=== PATIENT | female | born 1950 | race Caucasian/White ===

== ENCOUNTER 2017-03-30 22:09 | Inpatient (IN) | payer OTHER ==
[~2017-03-30] VITALS: Ht 157.5 cm; Wt 73.0 kg
[2017-03-31] MEDS ORDERED: morphine 4 MG/ML VIAL IV STA (01:43)
[2017-03-31] MEDS ORDERED: ONDANSETRON 4 MG INJ IV STA (01:43)
[2017-03-31] MEDS ORDERED: hydrALAzine 20 MG INJ IV ONE (02:00)
--- NOTE | 2017-03-31 02:08 | RADRPT ---
PROCEDURE: XR Chest. CLINICAL INDICATION: Abdominal pain TECHNIQUE: AP Portable chest. COMPARISON: No pertinent prior examinations were submitted for comparison. FINDINGS: The cardiomediastinal silhouette is normal. The lungs are clear. The osseous structures are unrema rkable. No intra-abdominal free air is seen, assuming this is an upright view. IMPRESSION: No acute findings. RPTAT: HIKT .Nathan Cruz MD, MD Date Time Electronically viewed and signed by .Nathan Cruz MD, on 03/31/2017 02:08 .T/
[2017-03-31 03:04] LABS: BASOPHILS % 0.3 % (0.0-2.0); EOSINOPHILS % 0.3 % (0.0-7.0); HEMATOCRIT 41.5 % (37.0-47.0); HEMOGLOBIN 13.9 g/dl (12.0-16.0); LYMPHOCYTES # 1.9 10^3/ul (0.8-2.9); MEAN CORPUSCULAR HEMOGLOBIN 30.2 pg (29.0-33.0); MEAN CORPUSCULAR HGB CONC 33.5 g/dl (32.0-37.0); MEAN CORPUSCULAR VOLUME 90.2 fl (82.0-101.0); MEAN PLATELET VOLUME 9.8 fl (7.4-10.4); MONOCYTE # 0.6 10^3/ul (0.3-0.9); MONOCYTES % 5.9 % (0.0-11.0); NEUTROPHILS % 75.1 % (39.0-77.0); PLATELET COUNT 249 10^3/UL (140-415); RED CELL DISTRIBUTION WIDTH 12.4 % (11.5-14.5); WHITE BLOOD COUNT 10.5 10^3/ul (4.8-10.8)
[2017-03-31 03:09] LABS: ADD UMIC NO; UR ASCORBIC ACID NEGATIVE (NEGATIVE); UR BILIRUBIN (Dip) NEGATIVE (NEGATIVE); UR BLOOD (Dip) NEGATIVE (NEGATIVE); UR CLARITY CLEAR (CLEAR); UR COLOR YELLOW (YELLOW); UR GLUCOSE (Dip) 1+ mg/dL (NEGATIVE); UR KETONES (Dip) NEGATIVE (NEGATIVE); UR LEUKOCYTE ESTERASE (Dip) NEGATIVE Leu/ul (NEGATIVE); UR NITRITE (Dip) NEGATIVE (NEGATIVE); UR SPECIFIC GRAVITY (Dip) 1.014 (1.003-1.030); UR TOTAL PROTEIN (Dip) NEGATIVE (NEGATIVE); UR UROBILINOGEN (Dip) NEGATIVE (NEGATIVE)
--- NOTE | 2017-03-31 03:10 | RADRPT ---
PROCEDURE: CT of the abdomen and pelvis without contrast CLINICAL INDICATION: Abdominal pain. TECHNIQUE: Spiral CT images through the abdomen and pelvis without the use of oral and without the use of intravenous contrast. The administered radiation dose is CTDI 14.43 and DLP 899.95. One or more of the following dose reduction techniques were used: automated exposure control, adjustment of the mA and/or kV according to patient size, or use of iterative reconstruction technique. COMPARISON: None FINDINGS: The study is limited by lack of intravenous contrast. Lung bases: Slight dependent atalectasis of the lung bases is seen.. Hepatobiliary: Mild diffuse hepatic steatosis.. The gallbladder is distended with small layering stones, wall thickening, and a small amount of air within. A small amount of air is present in the c ommon bile duct and the common hepatic ducts. Question prior sphincterotomy.. No biliary or pancreat ic ductal dilatation is seen.. Spleen: The spleen is unremarkable in appearance Adrenal glands: Unremarkable in appearance. No focal nodule.. Genitourinary: No hydronephrosis or renal calculi are seen.. Tiny calcification is seen in the anter ior urinary bladder wall.. Subtle 8 mm low attenuation lesion in the right kidney may represent a po yue defined cyst. Pancreas: Unremarkable. No focal mass or inflammatory process. Gastrointestinal Tract: There is no evidence for bowel obstruction, free air, or abscess. The appen patricia is unremarkable in appearance. Lymph nodes: No visible pathologic lymphadenopathy.. Peritoneal cavity: Unremarkable mesentery and peritoneum.. No mass, edema, or ascites. Reproductive Organs: Unremarkable uterus and adnexal structures.. Vascular structures: Mild aortic and coronary artery calcification. Mild cardiomegaly.. Musculoskeletal: There is mild degenerative change of the spine. IMPRESSION: Probable acute cholecystitis. Correlation with HIDA scan could be considered. Air in the gallbladde r and extrahepatic biliary ducts suggests prior sphincterotomy. Hepatic steatosis. RPTAT: HLBE Physician Cris Date Time Electronically viewed and signed by Physician Cris on 03/31/2017 03:10 LE/
[2017-03-31] MEDS ORDERED: SITA1TAB5 PO (03:21)
[2017-03-31] MEDS ORDERED: LISI40TA9 PO (03:21)
[2017-03-31] MEDS ORDERED: OMEP20CA16 PO (03:21)
[2017-03-31 03:24] LABS: ALANINE AMINOTRANSFERASE 79 IU/L (13-69); ALBUMIN 4.5 g/dl (3.3-4.9); ALBUMIN/GLOBULIN RATIO 1.32; ALKALINE PHOSPHATASE 71 IU/L (42-121); ANION GAP 16 (8-16); ASPARTATE AMINO TRANSFERASE 82 IU/L (15-46); BILIRUBIN,INDIRECT 0.5 mg/dl (0-1.1); BILIRUBIN,TOTAL 0.5 mg/dl (0.2-1.3); BLOOD UREA NITROGEN 18 mg/dl (7-20); CALCIUM 9.5 mg/dl (8.4-10.2); CARBON DIOXIDE 26 mmol/L (21-31); CHLORIDE 106 mmol/L (97-110); CREATININE 0.84 mg/dl (0.44-1.00); GLUCOSE 177 mg/dl (70-220); POTASSIUM 3.9 mmol/L (3.5-5.1); SODIUM 144 mmol/L (135-144); TOTAL PROTEIN 7.9 g/dl (6.1-8.1)
[2017-03-31 03:41] VITALS: TEMP 98.2
[2017-03-31 03:41] LABS: TROPONIN-I < 0.012 ng/ml (0.00-0.12)
[2017-03-31] MEDS ORDERED: GLUCOSE GEL 15 GRAM TUBE BUCCAL PRN (06:50)
[2017-03-31] MEDS ORDERED: DEXTROSE 50% 50 ML SYRINGE IV PRN ×2 (06:50)
[2017-03-31] MEDS ORDERED: GLUCAGON 1 MG INJ IM PRN (06:50)
[2017-03-31] MEDS ORDERED: GLUCOSE GEL 15 GRAM TUBE PO PRN ×2 (06:50)
[2017-03-31] MEDS ORDERED: NACL 0.9% 3 ML SYG IV SCH (07:00)
[2017-03-31] MEDS ORDERED: ACETAMINOPHEN 325 MG TAB PO PRN (07:00)
--- NOTE | 2017-03-31 07:34 | HP ---
Date/Time of Note Date/Time of Note DATE: 03/31/17 TIME: 07:14 Assessment/Plan VTE Prophylaxis VTE Prophylaxis Intervention: SCD's Assessment/Plan Chief Complaint/Hosp Course This is a 58-year-old female being admitted to the [facility] floor for: #1 acute pancreatitis: Patient's lipase is 7500. Patient denies any alcohol use. Will keep the patient n.p.o., provide aggressive IV fluid hydration with normal saline. IV narcotic pain control. Will check lipid panel blood alcohol level. #2 probable acute cholecystitis: The current time will start the patient on Zosyn IV every 6. As there is air in the gallbladder seen on the CAT scan will order an MRCP and a GI consult. Consider further consult with surgery as indicated. #3 diabetes mellitus: Check hemoglobin A1c. Will put patient on insulin sliding scale hold home medications. #4 hypertension: Continue to monitor blood pressure. Home blood pressure medication as indicated Further treatment strategy will be implemented as per the clinical course Problems: HPI/ROS Admit Date/Time Admit Date/Time Hx of Present Illness Chief complaint: Back pain radiating to the abdomen This is a 66-year-old female who comes in today with back pain radiating radiating to the abdomen. Patient states that the pain started suddenly was sharp and 10 out of 10. The pain started in her back and radiated around the right side to the epigastric region. She denies ever having this pain before. She does report nausea and vomiting. She reports multiple episodes of vomiting nonbloody nonbilious. She denies any fevers denies any shortness of breath. Denies any blood in her stool or blood in her vomitus. Allergies: Peanuts, strawberries Medications: See DELILAH AYALA Const: As per HPI Eyes : No pain discharge or redness or change in visual acuity ENT: No pain, sore throat, congestion, congestion, dysphagia or discharge Respiratory: No shortness of breath, cough, sputum, wheezing, or pleuritic pain Cardiovascular: No chest pain, palpitation, PND, or edema GI : As per HPI Genitourinary: No dysuria, hematuria, flank pain , discharge or CVA tenderness Musculoskeletal: No joint pain, back pain, neck pain, restricted range of motion in neck or joints Skin: No rash, bruising or hives Neuro: No headache, dizziness, syncope, seizure, focal weakness Endocrine: No polyuria, polydipsia, temperature intolerance Psych: No hallucination, depression, anxiety or suicidal ideation PMH/Family/Social Past Medical History Hypertension, diabetes Past Surgical History Left knee surgery, abdominal cyst removal Family History Significant Family History: no pertinent family hx Social History Alcohol Use: none Smoking Status: Never smoker Drug Use: none Exam/Review of Systems Vital Signs Vitals Vital Signs Date Time Temp Pulse Resp B/P Pulse Ox O2 Delivery O2 Flow Rate FiO2 03/31/17 06:39 72 20 132/85 99 Room Air 03/31/17 03:41 98.2 Exam Exam General: Patient is well-developed well-nourished The patient is alert oriented -3 lying comfortably in bed. HEENT: Atraumatic, normocephalic. The pupils are equal, round and reactive. Extraocular motor are intact Neck: Supple with full range of motion. No rigidity or meningismus Chest: Nontender Lungs: Clear to auscultation bilaterally no crackles rales or wheezing Heart: Normal S1-S2, Regular rhythm and rate. No murmur, S3, or S4 Abdomen: Tenderness to palpation the epigastric region, normal bowel sounds, distended Extremities: Normal to inspection, no edema no cyanosis Neurologic: Normal mental status, speech normal, cranial nerves II through XII are intact, motor and sensory are intact, no focal weakness Additional Comments PROCEDURE: CT of the abdomen and pelvis without contrast CLINICAL INDICATION: Abdominal pain. TECHNIQUE: Spiral CT images through the abdomen and pelvis without the use of oral and without the use of intravenous contrast. The administered radiation dose is CTDI 14.43 and DLP 899.95. One or more of the following dose reduction techniques were used: automated exposure control, adjustment of the mA and/or kV according to patient size, or use of iterative reconstruction technique. COMPARISON: None FINDINGS: The study is limited by lack of intravenous contrast. Lung bases: Slight dependent atalectasis of the lung bases is seen.. Hepatobiliary: Mild diffuse hepatic steatosis.. The gallbladder is distended with small layering stones, wall thickening, and a small amount of air within. A small amount of air is present in the common bile duct and the common hepatic ducts. Question prior sphincterotomy.. No biliary or pancreatic ductal dilatation is seen.. Spleen: The spleen is unremarkable in appearance Adrenal glands: Unremarkable in appearance. No focal nodule.. Genitourinary: No hydronephrosis or renal calculi are seen.. Tiny calcification is seen in the anterior urinary bladder wall.. Subtle 8 mm low attenuation lesion in the right kidney may represent a poorly defined cyst. Pancreas: Unremarkable. No focal mass or inflammatory process. Gastrointestinal Tract: There is no evidence for bowel obstruction, free air, or abscess. The appendix is unremarkable in appearance. Lymph nodes: No visible pathologic lymphadenopathy.. Peritoneal cavity: Unremarkable mesentery and peritoneum.. No mass, edema, or ascites. Reproductive Organs: Unremarkable uterus and adnexal structures.. Vascular structures: Mild aortic and coronary artery calcification. Mild cardiomegaly.. Musculoskeletal: There is mild degenerative change of the spine. IMPRESSION: Probable acute cholecystitis. Correlation with HIDA scan could be considered. Air in the gallbladder and extrahepatic biliary ducts suggests prior sphincterotomy. Hepatic steatosis. RPTAT: HLBE Physician Cris Date Time Electronically viewed and signed by Hortencia Tierney Physician on 03/31/2017 03 :10 LE/ CC: AFSHAN RUIZ PROCEDURE: XR Chest. CLINICAL INDICATION: Abdominal pain TECHNIQUE: AP Portable chest. COMPARISON: No pertinent prior examinations were submitted for comparison. FINDINGS: The cardiomediastinal silhouette is normal. The lungs are clear. The osseous structures are unremarkable. No intra-abdominal free air is seen, assuming this is an upright view. IMPRESSION: No acute findings. RPTAT: HIKT .Nathan Cruz MD, MD Date Time Electronically viewed and signed by .Nathan Cruz MD, MD on 03/31/2017 02:08 .T/ CC: AFSHAN RUIZ Labs Result Diagram: 03/31/1721403/31/17214 Medications Medications Current Medications Sodium Chloride (NS) 1,000 ml @ 200 mls/hr Q5H IV ; Start 03/31/17 at 06:42 Ondansetron HCl (Zofran Inj) 4 mg Q6H PRN IV NAUSEA AND/OR VOMITING; Start 03/31 at 07:00 Acetaminophen (Tylenol Tab) 650 mg Q6H PRN PO PAIN LEVEL 1-3 OR FEVER; Start at 07:00 Hydromorphone HCl (Dilaudid) 0.5 mg Q4H PRN IV SEVERE PAIN LEVEL 7-10; Start at 07:00 Pantoprazole (Protonix Iv) 40 mg DAILY@06 IV ; Start 04/01/17 at 06:00 Diagnostic Test (Pha) (Accu-Chek) 1 ea 02 XX ; Start 04/01/17 at 02:00 Insulin Aspart (Novolog Insulin Pen) NOVOLOG *MILD* ALGORI... Q4 SC ; Start 03/31 at 09:00 Miscellaneous Information 1 ea NOTE XX ; Start 03/31/17 at 06:50 Glucose (Glutose) 15 gm Q15M PRN PO DECREASED GLUCOSE; Start 03/31/17 at 06:50 Glucose (Glutose) 22.5 gm Q15M PRN PO DECREASED GLUCOSE; Start 03/31/17 at 06:50 Dextrose (D50w Syringe) 25 ml Q15M PRN IV DECREASED GLUCOSE; Start 03/31/17 at 06:50 Dextrose (D50w Syringe) 50 ml Q15M PRN IV DECREASED GLUCOSE; Start 03/31/17 at 06:50 Glucagon (Glucagen) 1 mg Q15M PRN IM DECREASED GLUCOSE; Start 03/31/17 at 06:50 Glucose (Glutose) 15 gm Q15M PRN BUCCAL DECREASED GLUCOSE; Start 03/31/17 at 06: 50 GERSON GARCIA Mar 31, 2017 07:25
[2017-03-31] MEDS: SOD CHLORIDE 0.9% 1,000 ML IV SCH ×5 (08:09→21:31)
[2017-03-31] MEDS: PIPER-TAZO 3.375 GM IV (PMX) 100 ML IVPB SCH ×3 (08:46→17:59)
[2017-03-31 09:09] LABS: CHOL/HDL RATIO 4.4 RATIO
[2017-03-31 09:20] VITALS: Ht 157.5 cm; Wt 73.0 kg
[2017-03-31] MEDS: INSULIN ASPART [NOVOLOG] 3 ML PEN SC SCH ×4 (09:33→21:00)
--- NOTE | 2017-03-31 09:37 | RADRPT ---
PROCEDURE: US Abdomen (right upper quadrant). CLINICAL INDICATION: Abdominal pain TECHNIQUE: Multiple real-time longitudinal and transverse images of the right upper quadrant of th e abdomen were acquired utilizing a curved array transducer. Images were reviewed on a high-resoluti on PACS workstation. COMPARISON: Correlation with CT from the same day. FINDINGS: The liver is normal in size and demonstrates diffusely increased echogenicity without focal mass or intrahepatic biliary dilatation. Multiple stones are seen dependently within the gallbladder. Irreg ular shadowing is seen non dependently within the gallbladder which may represent focal area of gas as seen on prior CT. The gallbladder wall is thickened measuring 5.1 mm. No intrahepatic biliary di latation is seen. The common bile duct measures 6 mm in maximal dimension. The visualized portions of the pancreas are unremarkable with obscuration of the tail of the pancreas. No free fluid is id entified. The right kidney measures 11.3 cm in length. There is normal echogenicity within the right kidney. There is no perinephric fluid collection. No hydronephrosis, mass, or calculus is seen. IMPRESSION: 1. Cholelithiasis with gallbladder wall edema and suggestion of gas along the anterior aspect of th e gallbladder. The findings may represent emphysematous cholecystitis in the correct clinical settin g. 2. Borderline prominent common bile duct. Correlate with bilirubin levels. If there is concern for choledocholithiasis, consider MRCP. 3. Increased hepatic echogenicity, suggesting steatosis. RPTAT: EE .Hank Velazquez MD, Date Time Electronically viewed and signed by .Hank Velazquez MD, on 03/31/2017 09:37 .A/
[2017-03-31 09:40] LABS: THYROID STIMULATING HORMONE 0.29 MIU/L (0.465-4.680)
--- NOTE | 2017-03-31 10:23 | RADRPT ---
PROCEDURE: MRCP without contrast. CLINICAL INDICATION: Right upper quadrant abdominal pain. TECHNIQUE: Routine MRCP was obtained without the administration of intravenous contrast. COMPARISON: Ultrasound, 03/31/17. FINDINGS: There are multiple small stones with diffuse gallbladder wall thickening. The biliary system is norm al in caliber. There is no filling defect or choledocholithiasis. The pancreatic duct is within normal limits. There is trace inflammation identified in the right an terior pararenal space, which may reflect pancreatitis. There is no peripancreatic fluid collection. IMPRESSION: Cholelithiasis with diffuse gallbladder wall thickening; recommend clinical correlation for cholecys titis. No biliary dilatation, choledocholithiasis, or biliary obstruction. RPTAT: EE .George Montes MD, MD Date Time Electronically viewed and signed by .George Montes MD, on 03/31/2017 10:28 .C/
[2017-03-31] MEDS: HYDROmorphONE 1 MG/ML SYG IV PRN ×2 (11:24→21:25)
[2017-03-31 11:26] VITALS: BP 126/75; PULSE 76; RESP 16
[2017-03-31] MEDS: ONDANSETRON 4 MG INJ IV PRN ×2 (12:52→21:29)
[2017-03-31 14:14] VITALS: BP 131/74; RESP 16
--- NOTE | 2017-03-31 16:14 | QN ---
Documentation Comment S: Patient seen and examined with daughter at bedside this am. She was c/o epigastric abdominal pain with nausea and vomiting but feeling hungry. Would like to eat but as she was being transported to another room she had an episode of emesis. O: VSS general- fatigued, awake and alert CVS- regular rate and rhythm, no murmurs Lungs- CTA B/L. no wheezes, rales, rhonchi Abd- soft, tenderness in epigastric area, negative rbittani sign, no rebound or guarding Ext- pulses intact, no edema, cyanosis, or clubbing A/P 1. Acute pancreatitis - Will continue IV NSS, pain control and NPO status - Will plan to advance diet as tolerated - Etiology may be from DM medication- sitagliptin and will need to change medication prior to discharge - Lipase trending downward - MRCP negative for choledocholithiasis - TG 147 2. Acute cholecystitis? - Spoke with patient about possibility of needing surgery but at this time would like to hold off on surgery until pancreas pain resolves - Patient denies any diarrhea and remains afebrile with nl WBC 3. DM - A1c 7.0 - On metformin/sitagliptin but will need to change medication prior to d/c since pancreatitis may be medication induced. - hold metformin while inpatient and ISS 4. TSH - 0.29 but in acute setting will need to have levels follow up after acute issue resolves ISAIAH ALLEN MD Mar 31, 2017 16:14
[2017-03-31 20:00] VITALS: BP 160/88; RESP 20
[2017-04-01] MEDS: INSULIN ASPART [NOVOLOG] 3 ML PEN SC SCH ×4 (00:13→12:32)
[2017-04-01] MEDS: PIPER-TAZO 3.375 GM IV (PMX) 100 ML IVPB SCH ×4 (00:13→17:50)
[2017-04-01] MEDS ORDERED: ACCU-CHEK XX SCH (02:00)
[2017-04-01 02:08] VITALS: BP 140/79; RESP 20
[2017-04-01] MEDS: SOD CHLORIDE 0.9% 1,000 ML IV SCH ×5 (03:34→20:30)
[2017-04-01 05:35] LABS: BASOPHILS % 0.5 % (0.0-2.0); EOSINOPHILS # 0.2 10^3/ul (0.0-0.5); EOSINOPHILS % 2.1 % (0.0-7.0); HEMATOCRIT 34.4 % (37.0-47.0); HEMOGLOBIN 11.3 g/dl (12.0-16.0); LYMPHOCYTES # 1.8 10^3/ul (0.8-2.9); LYMPHOCYTES % 22.9 % (15.0-51.0); MEAN CORPUSCULAR HEMOGLOBIN 29.9 pg (29.0-33.0); MEAN CORPUSCULAR HGB CONC 32.8 g/dl (32.0-37.0); MEAN PLATELET VOLUME 9.9 fl (7.4-10.4); MONOCYTE # 0.7 10^3/ul (0.3-0.9); MONOCYTES % 9.4 % (0.0-11.0); NEUTROPHILS % 64.8 % (39.0-77.0); PLATELET COUNT 208 10^3/UL (140-415); RED BLOOD COUNT 3.78 10^6/ul (4.20-5.40); RED CELL DISTRIBUTION WIDTH 12.8 % (11.5-14.5); WHITE BLOOD COUNT 7.8 10^3/ul (4.8-10.8)
[2017-04-01 05:54] LABS: ALBUMIN/GLOBULIN RATIO 1.15; BILIRUBIN,INDIRECT 0.6 mg/dl (0-1.1); BILIRUBIN,TOTAL 0.6 mg/dl (0.2-1.3); CALCIUM 8.2 mg/dl (8.4-10.2); CREATININE 0.81 mg/dl (0.44-1.00); POTASSIUM 3.7 mmol/L (3.5-5.1); TOTAL PROTEIN 5.6 g/dl (6.1-8.1)
[2017-04-01] MEDS ORDERED: PANTOPRAZOLE 40 MG INJ IV SCH (06:00)
[2017-04-01 07:37] VITALS: BP 135/78; RESP 17
--- NOTE | 2017-04-01 12:16 | PN ---
Date/Time of Note Date/Time of Note DATE: 04/01/17 TIME: 12:10 Assessment/Plan VTE Prophylaxis VTE Prophylaxis Intervention: LMWH Lines/Catheters IV [facility]): Peripheral IV Urinary Cath still in place: No Assessment/Plan Assessment/Plan 1. Acute pancreatitis - Most likely secondary to sitagliptin as patient was recently started on this per family - will start on clear liquid diet and advance as tolerated - Once tolerating PO will d/c IV NSS - Lipase trending downward - MRCP negative for choledocholithiasis - TG 147 2. Acute cholecystitis? - Doubt acute infection since Jose sign negative - LFT within normal limits - Patient denies any diarrhea and remains afebrile with nl WBC - On Zosyn and will d/c tmrw if WBC remain stable. Keeping on board for now due to presence of gas on CT scan of abdomen 3. DM - A1c 7.0 - On metformin/sitagliptin as outpt but will need to change medication prior to d/c since pancreatitis may be medication induced. - hold oral hyperglycemic agents 4. TSH - 0.29 but in acute setting will need to have levels follow up after acute issue resolves Subjective 24 Hr Interval Summary Free Text/Dictation Patient seen and examined with daughters at bedside. Patient doing well and hungry. She states her epigastric pain has resolved and would like to try eating. Denies any fevers, chills, nausea, vomiting, chest pain, shortness of breath, constipations, or diarrhea. Exam/Review of Systems Vital Signs Vitals Vital Signs Date Time Temp Pulse Resp B/P Pulse Ox O2 Delivery O2 Flow Rate FiO2 04/01/17 07:37 98.3 67 17 135/78 97 03/31/17 11:26 Room Air Intake and Output 03/31/17 03/31/17 04/01/17 15:00 23:00 07:00 Intake Total 100 ml 1300 ml 1200 ml Output Total 400 ml Balance 100 ml 900 ml 1200 ml Exam General: NAD, well-developed, laying comfortably in bed. HEENT: NC/AT. PERRL. EOM intact Neck: Supple with full range of motion. Lungs: Clear to auscultation bilaterally no crackles rales or wheezing Heart: Normal S1-S2, Regular rhythm and rate. No murmur, S3, or S4 Abdomen: saft, nontender, normal bowel sounds, distended Extremities: Normal to inspection, no edema no cyanosis Neurologic: Normal mental status, speech normal, cranial nerves II through XII are intact, motor and sensory are intact, no focal weakness Results Result Diagram: 04/01/1751104/01/17511 Results 24 hrs Laboratory Tests Test 03/31/17 13:57 03/31/17 14:10 03/31/17 18:02 03/31/17 21:15 Lipase 833 H Bedside Glucose 204 140 129 Test 04/01/17 00:12 04/01/17 05:12 04/01/17 05:27 04/01/17 09:03 Bedside Glucose 114 120 132 White Blood Count 7.8 # Red Blood Count 3.78 L Hemoglobin 11.3 L Hematocrit 34.4 L Mean Corpuscular Volume 91.0 Mean Corpuscular Hemoglobin 29.9 Mean Corpuscular Hemoglobin Concent 32.8 Red Cell Distribution Width 12.8 Platelet Count 208 Mean Platelet Volume 9.9 Neutrophils % 64.8 Lymphocytes % 22.9 Monocytes % 9.4 Eosinophils % 2.1 Basophils % 0.5 Nucleated Red Blood Cells % 0.0 Neutrophils # (Manual) 5.1 Lymphocytes # 1.8 Monocytes # 0.7 Eosinophils # 0.2 Basophils # 0.0 Nucleated Red Blood Cells # 0.0 Sodium Level 140 Potassium Level 3.7 Chloride Level 110 Carbon Dioxide Level 26 Anion Gap 8 # Blood Urea Nitrogen 14 Creatinine 0.81 Glucose Level 130 # Calcium Level 8.2 L Magnesium Level 1.8 Total Bilirubin 0.6 Direct Bilirubin 0.00 Indirect Bilirubin 0.6 Aspartate Amino Transf (AST/SGOT) 27 Alanine Aminotransferase (ALT/SGPT) 47 Alkaline Phosphatase 50 Total Protein 5.6 #L Albumin 3.0 #L Globulin 2.60 Albumin/Globulin Ratio 1.15 Medications Medications Current Medications Ondansetron HCl (Zofran Inj) 4 mg Q6H PRN IV NAUSEA AND/OR VOMITING Last administered on 03/31/17t 21:29; Admin Dose 4 MG; Start 03/31/17 at 07:00 Acetaminophen (Tylenol Tab) 650 mg Q6H PRN PO PAIN LEVEL 1-3 OR FEVER; Start at 07:00 Hydromorphone HCl (Dilaudid) 0.5 mg Q4H PRN IV SEVERE PAIN LEVEL 7-10 Last administered on 03/31/17 21:25; Admin Dose 0.5 MG; Start 03/31/17 at 07:00 Pantoprazole (Protonix Iv) 40 mg DAILY@06 IV Last administered on 04/01/17 05: 23; Admin Dose 40 MG; Start 04/01/17 at 06:00 Diagnostic Test (Pha) (Accu-Chek) 1 ea 02 XX ; Start 04/01/17 at 02:00 Insulin Aspart (Novolog Insulin Pen) NOVOLOG *MILD* ALGORI... Q4 SC Last administered on 03/31/17 14:22; Admin Dose 2 UNIT; Start 03/31/17 at 09:00 Miscellaneous Information 1 ea NOTE XX ; Start 03/31/17 at 06:50 Glucose (Glutose) 15 gm Q15M PRN PO DECREASED GLUCOSE; Start 03/31/17 at 06:50 Glucose (Glutose) 22.5 gm Q15M PRN PO DECREASED GLUCOSE; Start 03/31/17 at 06:50 Dextrose (D50w Syringe) 25 ml Q15M PRN IV DECREASED GLUCOSE; Start 03/31/17 at 06:50 Dextrose (D50w Syringe) 50 ml Q15M PRN IV DECREASED GLUCOSE; Start 03/31/17 at 06:50 Glucagon (Glucagen) 1 mg Q15M PRN IM DECREASED GLUCOSE; Start 03/31/17 at 06:50 Glucose 15 gm 15 gm Q15M PRN BUCCAL DECREASED GLUCOSE; Start 03/31/17 at 06:50 Piperacillin Sod/ Tazobactam Sod 100 ml @ 200 mls/hr Q6 IVPB Last administered on 04/01/17 05:23; Admin Dose 200 MLS/HR; Start 03/31/17 at 07:30 Sodium Chloride (NS) 1,000 ml @ 100 mls/hr Q10H IV Last administered on 10:39; Admin Dose 100 MLS/HR; Start 04/01/17 at 10:30 ISAIAH ALLEN MD Apr 01, 2017 12:16
[2017-04-01 14:26] VITALS: BP 134/74; RESP 19
[2017-04-01] MEDS: Insulin NOVOLOG SS MILD Algorithm (SS with meals and bedtime) SC SCH ×2 (17:36→21:00)
[2017-04-01] MEDS ORDERED: INSULIN ASPART [NOVOLOG] 3 ML PEN SC SCH (17:45)
[2017-04-01 20:17] VITALS: BP 156/87; RESP 18
[2017-04-02] MEDS: PIPER-TAZO 3.375 GM IV (PMX) 100 ML IVPB SCH ×2 (00:48→06:36)
[2017-04-02 01:58] VITALS: BP 149/73; RESP 18
[2017-04-02] MEDS ORDERED: ACCUCHECK AT 2AM (Patients on SS coverage) XX SCH (02:00)
[2017-04-02] MEDS: SOD CHLORIDE 0.9% 1,000 ML IV SCH (06:30)
[2017-04-02 07:37] VITALS: BP 163/79; RESP 18
[2017-04-02] MEDS: Insulin NOVOLOG SS MILD Algorithm (SS with meals and bedtime) SC SCH ×3 (08:01→17:45)
[2017-04-02] MEDS ORDERED: LISINOPRIL 20 MG TAB PO SCH (09:00)
[2017-04-02] MEDS ORDERED: FAMOTIDINE 20 MG INJ IV SCH (09:00)
--- NOTE | 2017-04-02 09:00 | PN ---
Date/Time of Note Date/Time of Note DATE: 04/02/17 TIME: 08:58 Assessment/Plan VTE Prophylaxis VTE Prophylaxis Intervention: LMWH Lines/Catheters [facility] Peripheral IV Urinary Cath still in place: No Assessment/Plan Assessment/Plan 1. Acute pancreatitis - Most likely secondary to sitagliptin as patient was recently started on this per family - advancing diet as tolerated. if no issues after lunch, will d/c - D/C NSS - MRCP negative for choledocholithiasis - TG 147 2. Acute cholecystitis? - Doubt acute infection since Jose sign negative - LFT within normal limits - Patient denies any diarrhea and remains afebrile with nl WBC -D/C Zosyn 3. DM - A1c 7.0 - On metformin/sitagliptin as outpt. A1c is 7.0 and will d/c sitagliptin. Will start on glipizide 2.5mg and continue on Metformin 1000mg BID - hold oral hyperglycemic agents until discharge. 4. TSH - 0.29 but in acute setting will need to have levels follow up after acute issue resolves Subjective 24 Hr Interval Summary Free Text/Dictation Patient seen and examined. Doing well and states no longer experiencing any pain. She is tolerating soft diet and will advance her to regular diet. Denies any chest pain, shortness of breath, abdominal pain, constipation, diarrhea, fevers, or chills. Exam/Review of Systems Vital Signs Vitals Vital Signs Date Time Temp Pulse Resp B/P Pulse Ox O2 Delivery O2 Flow Rate FiO2 04/02/17 07:37 97.9 67 18 163/79 97 03/31/17 11:26 Room Air Intake and Output 04/01/17 04/01/17 04/02/17 15:00 23:00 07:00 Intake Total 1420 ml 990 ml Balance 1420 ml 990 ml Exam General: NAD, well-developed, laying comfortably in bed. HEENT: NC/AT. PERRL. EOM intact Neck: Supple with full range of motion. Lungs: Clear to auscultation bilaterally no crackles rales or wheezing Heart: Normal S1-S2, Regular rhythm and rate. No murmur, S3, or S4 Abdomen: soft, nontender, normal bowel sounds, distended. no rebound or guarding Extremities: Normal to inspection, no edema no cyanosis Results Result Diagram: 04/01/17 0512 04/01/17 0512 Results 24 hrs Laboratory Tests Test 04/01/17 09:03 04/01/17 12:28 04/01/17 17:29 04/01/17 20:57 Bedside Glucose 132 131 130 177 Test 04/02/17 07:54 Bedside Glucose 145 Medications Medications Current Medications Ondansetron HCl (Zofran Inj) 4 mg Q6H PRN IV NAUSEA AND/OR VOMITING Last administered on 03/31/17 21:29; Admin Dose 4 MG; Start 03/31/17 at 07:00 Acetaminophen (Tylenol Tab) 650 mg Q6H PRN PO PAIN LEVEL 1-3 OR FEVER; Start at 07:00 Hydromorphone HCl (Dilaudid) 0.5 mg Q4H PRN IV SEVERE PAIN LEVEL 7-10 Last administered on 03/31/17 21:25; Admin Dose 0.5 MG; Start 03/31/17 at 07:00 Miscellaneous Information 1 ea NOTE XX ; Start 03/31/17 at 06:50 Glucose (Glutose) 15 gm Q15M PRN PO DECREASED GLUCOSE; Start 03/31/17 at 06:50 Glucose (Glutose) 22.5 gm Q15M PRN PO DECREASED GLUCOSE; Start 03/31/17 at 06:50 Dextrose (D50w Syringe) 25 ml Q15M PRN IV DECREASED GLUCOSE; Start 03/31/17 at 06:50 Dextrose (D50w Syringe) 50 ml Q15M PRN IV DECREASED GLUCOSE; Start 03/31/17 at 06:50 Glucagon (Glucagen) 1 mg Q15M PRN IM DECREASED GLUCOSE; Start 03/31/17 at 06:50 Glucose 15 gm 15 gm Q15M PRN BUCCAL DECREASED GLUCOSE; Start 03/31/17 at 06:50 Piperacillin Sod/ Tazobactam Sod 100 ml @ 200 mls/hr Q6 IVPB Last administered on 04/02/17 06:36; Admin Dose 200 MLS/HR; Start 03/31/17 at 07:30 Sodium Chloride (NS) 1,000 ml @ 100 mls/hr Q10H IV Last administered on 10:39; Admin Dose 100 MLS/HR; Start 9/7/17 at 10:30 Diagnostic Test (Pha) (Accu-Chek) 1 ea 02 XX ; Start 04/02/17 at 02:00 Famotidine (Pepcid Iv) 20 mg DAILY IV Last administered on 04/02/17t 08:17; Admin Dose 20 MG; Start 04/02/17 at 09:00 ISAIAH ALLEN MD Apr 02, 2017 09:00
--- NOTE | 2017-04-02 10:05 | PDOCDIS ---
Discharge Instructions DIAGNOSIS Discharge Diagnosis Acute pancreatitis, medication induced CONDITION Patient Condition: Good HOME CARE INSTRUCTIONS: Diet Instructions: Regular ACTIVITY: Activity Restrictions: No Restrictions FOLLOW UP/APPOINTMENTS Follow-up Plan Follow up with PCP for management of diabetic medications Janumet was discontinued because the Sitagliptin was most likely the cause of her pancreatitis Take Metformin 1000mg twice a day and Glipizide 2.5 mg daily for sugar control Keep well hydrated Return to ED if symptoms return ISAIAH ALLEN MD Apr 02, 2017 10:05
[2017-04-02 14:28] VITALS: BP 153/83; RESP 18
[2017-04-02] MEDS ORDERED: METF1000 PO (16:29)
[2017-04-02] MEDS ORDERED: GLIP5TAB13 PO (16:29)
[2017-04-03] MEDS ORDERED: PANTOPRAZOLE (EC) 40 MG TAB PO SCH (06:00)
--- NOTE | 2017-04-03 08:22 | DS ---
Date/Time of Note Date/Time of Note DATE: 04/03/17 TIME: 08:15 Discharge Summary Admission/Discharge Info Admit Date/Time Mar 31, 2017 at 05:29 Discharge Date/Time Apr 02, 2017 at 18:30 Discharge Diagnosis Acute pancreatitis, medication induced Patient Condition: Good Hx of Present Illness Chief complaint: Back pain radiating to the abdomen This is a 66-year-old female with PMH HTN and DM who comes in today with back pain radiating radiating to the abdomen. Patient states that the pain started suddenly was sharp and 10 out of 10. The pain started in her back and radiated around the right side to the epigastric region. She denies ever having this pain before. She does report nausea and vomiting. She reports multiple episodes of vomiting nonbloody nonbilious. She denies any fevers denies any shortness of breath. Denies any blood in her stool or blood in her vomitus. She was found to have acute pancreatitis with a lipase of 7500. Patient denies any alcohol use. She also had questionable acute cholecystitis with air in the gallbladder seen on the CAT scan Hospital Course The patient was admitted to med/surg floor and kept NPO, IV NSS was initiated and was started on pain control. She admitted to recently being started on Sitagliptin for glucose control and developed the abdominal pain shortly after. MRCP was performed which ruled out choledocholithiasis. Patient was informed about questionable acute davey and offered HIDA scan and surgery consultation. She decided to just be managed for the pancreatitis and if she developed RUQ pain then would like to pursue. Oral diabetic medications were held and she was placed on an insulin sliding scale. Abdominal pain was improving and her diet was advanced based on tolerance. Patients Jose sign was negative during hospitalization and she was able to tolerated regular diet with no issues. She was discharged on Metformin 1000mg BID and glipizide 2.5mg since her A1c was 7.0. She was discharged home with instructions to follow up with PCP. Patient was stable on discharge. Home Meds Active Scripts Glipizide* (Glipizide*) 5 Mg Tablet, 2.5 MG PO DAILY for 30 Days, #30 TAB Take 1/2 tablet by mouth daily Prov:ISAIAH ALLEN MD 04/02/17 Metformin Hcl* (Metformin Hcl*) 1,000 Mg Tablet, 1000 MG PO WITH BREAKFAST DINNE , #60 TAB Take one tablet by mouth twice daily Prov:ISAIAH ALLEN MD 04/02/17 Reported Medications Lisinopril* (Lisinopril*) 40 Mg Tablet, 40 MG PO DAILY, #30 TAB 03/31/17 Omeprazole* (Omeprazole*) 20 Mg Capsule.dr, 20 MG PO QAM, #30 CAP 03/31/17 Discontinued Reported Medications Sitagliptin Phos/Metformin HCl (Janumet 50-1,000 mg Tablet) 1 Each Tablet, 1 EACH PO, TAB 03/31/17 Follow-up Plan Follow up with PCP after discharge from hospital for monitoring of her diabetes. She was instructed to discontinue Janumet and take Metformin 1000mg BID and Glipizide 1.5mg daily. Primary Care Provider Not On Staff Doctor Time spent on discharge: > 30 minutes Pending Labs Laboratory Tests Test 04/02/17 11:57 Bedside Glucose 109mg/dL (70-220) ISAIAH ALLEN MD Apr 03, 2017 08:22
== END 2017-04-02 18:30 | disposition home or self-care (01) | DRG 439 ==
LOC: E/R 22:09 → MS3 03-31 05:29 → MS2 03-31 13:00
PROVIDERS: ADMIT Family Medicine; ATTEND Family Medicine
DX: K85.90 Acute pancreatitis without necrosis or infection, unspecified (principal); K81.0 Acute cholecystitis; I10 Essential (primary) hypertension; E11.9 Type 2 diabetes mellitus without complications
CPT/HCPCS: 71010; 74176; 74181; 76705; 80053; 80061; 80306; 81003; 82962; 83036; 83690; 83735; 84443; 84484; 85025; 87086; 93005; C9113; J0360; J1170; J1815; J2270; J2405; J2543; J7030